=== PATIENT | male | born 1985 | race Caucasian/White ===

== ENCOUNTER 2020-12-31 08:34 | Outpatient (CLI) | payer BC, SELFPAY ==
--- NOTE | 2021-01-25 21:20 | WPDHOMESLEEP ---
Sleep Study - Home Unattended Date of Study: 12/31/20 Ordering Provider: Merari Lopez NP Interpreting Provider: Traci Landis MD Home Sleep Study Type: Apnea Link Air Height: 1.8 m Weight: 99.79 kg Body Mass Index: 30.7 Neck Circumference (inches): 17 [place]: 10 Reason for Sleep Study Difficulty falling asleep, multiple nighttime awakenings, tired after a full night of sleep Sleep History Earle Aguilar is a 35 year old ernestine with difficulty falling asleep and staying asleep. This has been going on longer than 2 years. He believes his mother and father both have undiagnosed apnea. His father in his sleep from a heart attack. The patient has difficulty falling asleep, he wakes up multiple times at night and he has excessive daytime sleepiness. He has a difficult time waking in the morning. He has tried melatonin without success. He rarely awakens from sleep feeling short of breath or awakens at night with heartburn, belching or coughing. He occasionally snores. His snoring is not loud enough that others complain. He rarely has trouble sleeping with a cold, rarely gasps for breath at night and rarely has breathing problems at night observed by others. He occasionally sweats excessively at night. He frequently notices his heart pounding or beating irregularly at night. He rarely falls asleep during the day. He does not fall asleep involuntarily or while driving. He rarely has loss of muscle tone with strong emotion. He occasionally has daytime difficulties due to excessive sleepiness. He does not feel paralyzed on waking or falling asleep nor does dreamlike scenes upon awakening or falling asleep. He does not feel afraid to go to sleep. He occasionally has nightmares. He frequently remembers his dreams, frequently has racing thoughts through his mind, frequently has feelings of sadness depression and anxiety. He frequently has muscular tension. He does not notice parts of his body jerking and he does not kick at night. He occasionally has crawling aching feelings in his legs. He occasionally has leg pain at night. He does not have morning jaw pain. He occasionally grinds his teeth during sleep. He frequently is bothered by pain during the day. He occasionally is awakened by pain at night and occasionally wakes up feeling stiff in the morning. He occasionally wakes up with sore achy muscles. He occasionally wakes up with pain in the neck and spine. He has fatigue, palpitations, insomnia and concentration difficulties. He reports decreased sex drive. Normal bedtime is between midnight and 12:30 a.m., taking 20-30 minutes to fall asleep, typically waking 2-3 times at night to use the bathroom. He stays awake on average between 3 and 4 minutes. He wakes in the morning at 8:00-8:30 a.m.. On the weekends, he goes to bed later, between 1 a.m. and 1:30 a.m.. He wakes at the same time, 8:00 a.m. to 8:30 a.m.. He does not take naps. A short nap is not refreshing. He is drowsy in the morning for an hour. He feels better in the evening compared to other times of day. Habits: quit tobacco years ago. Caffeine 2-4 cups a day. Alcohol 2-4 drinks per week. No recreational drugs. [facility] Past Medical History Medical History Depression with anxiety Exercise-induced asthma GERD (gastroesophageal reflux disease) Hyperlipidemia Family History Family History Father Hypertension Grandparent Diabetes mellitus Social History Social History Smoking status: Current every day smoker Smoking end date: 05/10/09 Alcohol intake: current Medications Home Medications Medication Instructions Recorded Confirmed Type atenolol 50 mg tablet See Rx Instructions .ROUTE 08/02/20 12/27/20 Rx .COMPLEX #90 tablet albuterol sulfate 90 mcg/actuation 1 puff
[2021-01-25 21:31] VITALS: BMI 30.7
== END 2021-01-01 09:51 | disposition home or self-care (01) ==
LOC: ANHCSM 08:35
PROVIDERS: PCP Nurse Practitioner Family; Visit Provider Nurse Practitioner Family
DX: G47.33 Obstructive sleep apnea (adult) (pediatric) (principal)
CPT/HCPCS: 95806

== ENCOUNTER 2021-02-25 08:32 | Outpatient (CLI) | payer BC, SELFPAY ==
--- NOTE | 2021-03-12 18:23 | WPDSLEEPSTUD ---
Sleep Study Date of Study: 02/25/21 Ordering Provider: Merari Lopez NP Interpreting Physician: Traci Landis MD Sleep Study Type: CPAP Titration Height: 1.8 m Weight: 100.698 kg Body Mass Index: 30.9 Neck Circumference (inches): 17 [place]: 10 Reason for Sleep Study * 12/31/2020 Home sleep test using ApneaLink on 12/31/2020; at least mild obstructive sleep apnea, apnea-hypopnea index of 9, desaturation 86% and mild snoring; medical comorbidity of depression with anxiety and with this he is a candidate for PAP therapy. The patient had a mixture of apneas with the majority being central apneas, 75% of the total and some mixed apneas. He now presents for CPAP titration in the sleep lab. Sleep History Earle Aguilar is a 35 year old man with difficulty falling asleep and staying asleep. This has been going on longer than 2 years. He believes his mother and father both have undiagnosed apnea. His father in his sleep from a heart attack. The patient has difficulty falling asleep as well as episodes of waking up multiple times at night. He has a difficult time waking in the morning and excessive daytime sleepiness. He has tried melatonin without success. He rarely awakens from sleep feeling short of breath or awakens at night with heartburn, belching or coughing. He occasionally snores. His snoring is not loud enough that others complain. He rarely has trouble sleeping with a cold, rarely gasps for breath at night and rarely has breathing problems at night observed by others. He occasionally sweats excessively at night. He frequently notices his heart pounding or beating irregularly at night. He rarely falls asleep during the day. He does not fall asleep involuntarily or while driving. He rarely has loss of muscle tone with strong emotion. He occasionally has daytime difficulties due to excessive sleepiness. He does not feel paralyzed on waking or falling asleep nor does dreamlike scenes upon awakening or falling asleep. He does not feel afraid to go to sleep. He occasionally has nightmares. He frequently remembers his dreams, frequently has racing thoughts through his mind, frequently has feelings of sadness depression and anxiety. He frequently has muscular tension. He does not notice parts of his body jerking and he does not kick at night. He occasionally has crawling aching feelings in his legs. He occasionally has leg pain at night. He does not have morning jaw pain. He occasionally grinds his teeth during sleep. He frequently is bothered by pain during the day. He occasionally is awakened by pain at night and occasionally wakes up feeling stiff in the morning. He occasionally wakes up with sore achy muscles. He occasionally wakes up with pain in the neck and spine. He has fatigue, palpitations, insomnia and concentration difficulties. He reports decreased sex drive. Normal bedtime is between midnight and 12:30 a.m., taking 20-30 minutes to fall asleep, typically waking 2-3 times at night to use the bathroom. He stays awake on average between 3 and 4 minutes. He wakes in the morning at 8:00-8:30 a.m.. On the weekends, he goes to bed later, between 1 a.m. and 1:30 a.m.. He wakes at the same time, 8:00 a.m. to 8:30 a.m.. He does not take naps. A short nap is not refreshing. He is drowsy in the morning for an hour. He feels better in the evening compared to other times of day. Habits: He quit tobacco years ago. Caffeine 2-4 cups a day. Alcohol 2-4 drinks per week. No recreational drugs. [facility] Past Medical History Medical History (Updated 03/12/21 @ 19:19 by Traci Landis MD) Bruxism Central sleep apnea (~12/2020) Depression with anxiety Exercise-induced asthma GERD (gastroesophageal reflux disease) Hyperlipidemia Family History Family History Father Hypertension Grandparent Diabetes mellitus Social History Social History (Reviewed
[2021-03-12 18:25] VITALS: BMI 30.9
== END 2021-02-26 06:56 | disposition home or self-care (01) ==
LOC: ANHCSM 08:34
PROVIDERS: PCP Nurse Practitioner Family; Visit Provider Nurse Practitioner Family
DX: G47.33 Obstructive sleep apnea (adult) (pediatric) (principal)
CPT/HCPCS: 95811

== ENCOUNTER 2023-02-12 08:22 | Outpatient (CLI) | payer BC, SELFPAY ==
[2023-02-12 19:08] LABS: Basophils Absolute Auto 0.1 K/mm3 (0.0-0.1); Basophils Percent Auto 1.5 % (0.2-1.2); Eosinophils Absolute Auto 0.2 K/mm3 (0-0.3); Eosinophils Percent Auto 4.1 % (0-4.4); Hematocrit 46.3 % (42.0-52.0); Hemoglobin 15.5 g/dL (14.0-18.0); Immature Granulocyte Absolute 0.01 K/mm3 (0.00-0.031); Immature Granulocyte Percent A 0.3 % (0-0.5); Lymphocytes Absolute Auto 1.64 K/mm3 (0.9-3.2); Lymphocytes Percent Auto 42.2 % (18.3-44.2); Mean Corpuscular HGB Conc 33.5 g/dl (32-36); Mean Corpuscular Hemoglobin 30.7 pg (26-34); Mean Corpuscular Volume 91.7 fl (80-100); Mean Platelet Volume 10.5 fl (7.4-10.4); Monocytes Absolute Auto 0.4 K/mm3 (0.1-0.6); Monocytes Percent Auto 9.5 % (2.6-8.5); Neutrophils Absolute Auto 1.7 K/mm3 (1.3-6.7); Neutrophils Percent Auto 42.4 % (45.5-73.1); Platelet Count Result 226 k/mm3 (150-375); Red Blood Count 5.05 M/mm3 (4.6-6.20); Red Cell Distribution Width 12.5 % (11.5-14.5); White Blood Count 3.9 K/mm3 (4.5-10.0)
[2023-02-12 19:47] LABS: Alanine Aminotransferase 49 U/L (6-50); Albumin Level 4.3 g/dL (3.5-5.1); Alkaline Phosphatase 62 U/L (38-126); Anion Gap 2 mmol/L (8-16); Aspartate Amino Transferase 41 U/L (17-59); Bilirubin,Total 0.9 mg/dL (0.2-1.3); Blood Urea Nitrogen 15 mg/dL (9-20); Calcium 9.3 mg/dL (8.4-10.2); Carbon Dioxide 33 mmol/L (22-30); Chloride 103 mmol/L (98-107); Cholesterol 156 mg/dL (0-200); Estimated Glomerular Filt Rate > 60; Glucose 85 mg/dL (65-110); HDL Direct 49 mg/dL; Potassium 4.3 mmol/L (3.4-5.0); Sodium 138 mmol/L (137-145); Triglycerides 69 mg/dL (<150)
[2023-02-12 19:57] LABS: LDL Cholesterol Direct 80 mg/dL
[2023-02-15 23:55] LABS: Vitamin D 1,25 (OH)2 Total 50 pg/mL (18-72); Vitamin D2 1,25 (OH)2 <8 pg/mL; Vitamin D3 1,25 (OH)2 50 pg/mL
[2023-02-17 13:51] LABS: Testosterone Free 57.8 pg/mL (35.0-155.0); Testosterone Total 416 ng/dL (250-1100)
== END 2023-02-12 08:23 | disposition home or self-care (01) ==
LOC: ANHGOSHLAB 08:24
PROVIDERS: PCP Family Medicine; Visit Provider Nurse Practitioner Family
DX: I10 Essential (primary) hypertension (principal); R68.82 Decreased libido; R53.83 Other fatigue; E55.9 Vitamin D deficiency, unspecified
CPT/HCPCS: 36415; 80053; 80061; 82652; 84402; 84403; 84443; 85025

== ENCOUNTER 2024-09-01 11:32 | Outpatient (CLI) | payer BC, SELFPAY ==
--- OUTSIDE RECORDS SUMMARY | 2024-09-01 11:49 | XMS_ITS | Clinical Summary ---
Author Organization [facility] Address [address] [place] [address] Care Team Providers Care Director Dental Services Name Role Phone Donnell Renae MD Primary Care Provider [phone] Source Comments [facility],non-owned Affiliates and Associated Physician Practices is amultiple site organization consisting of ambulatory clinics and hospital sitesin [place], [place], [place] and [place]. This disclosure is being madepursuant to the Care Everywhere program and may not contain all information available regarding this patient. Last updated 18.[facility] Medications * Be aware that medications may not be up to date on this document. Alwaysverify current medications with the patient. No known medications Social History Tobacco Use Types Packs/Day Years Used Date Smoking Tobacco: Never Assessed Sex and Gender Information Value Date Recorded Sex Assigned at Not on file Legal Sex Male 10:34 AM [employer] Gender Identity Not on file Sexual Orientation Not on file Plan of Treatment Health Maintenance Due Date Last Done Comments HIV SCREENING 2000 HEPATITIS C SCREENING 09/04/2003 DTAP/TDAP/TD VACCINES (1 - Tdap) 2004 HEPATITIS B VACCINE (1 of 3 - 19+ 3-dose series) 2004 COVID-19 VACCINE ( - 2023-2 5 season) 2024 DEPRESSION SCREENING 05/10/2024 INFLUENZA VACCINE (Season Ended) 2025 ZOSTER VACCINE (1 of 2) 09/09/2035 HIB VACCINE Aged Out No longer eligi ble based on patient's age to complete this topic HPV VACCINE Aged Out No longer eligi ble based on patient's age to complete this topic MENINGOCOCCAL (Group B) VACC INE SHARED DECISION-MAKING Aged Out No longer eligibl e based on patient's age to complete this topic MENINGOCOCCAL GROUPS A/C/Y/W VACCINE Aged Out No longer eligible b ased on patient's age to complete this topic PNEUMOCOCCAL VACCINE Aged Out No long er eligible based on patient's age to complete this topic Insurance [facility] Care Teams Director Dental Services Relationship Specialty Start Date End Date Donnell Renae MD [address] [place] [address] PCP - General Family Medicine 07/14/17
[2024-09-01 18:47] LABS: Basophils Absolute Auto 0.1 K/mm3 (0.0-0.1); Basophils Percent Auto 1.2 % (0.2-1.2); Eosinophils Absolute Auto 0.1 K/mm3 (0-0.3); Hematocrit 50.2 % (42.0-52.0); Hemoglobin 16.3 g/dL (14.0-18.0); Immature Granulocyte Absolute 0.02 K/mm3 (0.00-0.031); Immature Granulocyte Percent A 0.4 % (0-0.5); Lymphocytes Absolute Auto 2.03 K/mm3 (0.9-3.2); Lymphocytes Percent Auto 41.9 % (18.3-44.2); Mean Corpuscular HGB Conc 32.5 g/dl (32-36); Mean Corpuscular Hemoglobin 29.5 pg (26-34); Mean Corpuscular Volume 90.9 fl (80-100); Mean Platelet Volume 10.6 fl (7.4-10.4); Monocytes Absolute Auto 0.5 K/mm3 (0.1-0.6); Monocytes Percent Auto 9.5 % (2.6-8.5); Neutrophils Absolute Auto 2.2 K/mm3 (1.3-6.7); Platelet Count Result 250 k/mm3 (150-375); Red Blood Count 5.52 M/mm3 (4.6-6.20); Red Cell Distribution Width 12.4 % (11.5-14.5); White Blood Count 4.8 K/mm3 (4.5-10.0)
[2024-09-01 18:48] LABS: Alanine Aminotransferase 65 U/L (6-50); Albumin Level 4.8 g/dL (3.5-5.1); Alkaline Phosphatase 71 U/L (38-126); Anion Gap 11 mmol/L (4-12); Aspartate Amino Transferase 64 U/L (17-59); Bilirubin,Total 0.9 mg/dL (0.2-1.3); Blood Urea Nitrogen 23 mg/dL (9-20); Calcium 9.4 mg/dL (8.4-10.2); Carbon Dioxide 28 mmol/L (22-30); Chloride 101 mmol/L (98-107); Cholesterol 162 mg/dL (0-200); Estimated Glomerular Filt Rate > 60; Glucose 98 mg/dL (65-110); HDL Direct 45 mg/dL; Potassium 4.2 mmol/L (3.4-5.0); Sodium 140 mmol/L (137-145); Triglycerides 94 mg/dL (<150)
[2024-09-01 18:59] LABS: LDL Cholesterol Direct 66 mg/dL
[2024-09-01 19:10] LABS: Free T4 Free Thyroxine 0.99 ng/dL (0.78-2.19); Vitamin D 25 Hydroxy 68.2 ng/mL
== END 2024-09-01 11:33 | disposition home or self-care (01) ==
LOC: ANHGOSHLAB 11:33
PROVIDERS: PCP Family Medicine; Visit Provider Nurse Practitioner Family
DX: Z00.00 Encounter for general adult medical examination without abnormal findings (principal); E55.9 Vitamin D deficiency, unspecified; I10 Essential (primary) hypertension; R68.82 Decreased libido; Z13.220 Encounter for screening for lipoid disorders
CPT/HCPCS: 36415; 80053; 80061; 82306; 84403; 84439; 84443; 85025